=== PATIENT | male | born 1965 | race Caucasian/White ===

== ENCOUNTER 2021-05-23 02:58 | Observation (INO) | payer OTHER ==
[~2021-05-23] VITALS: Ht 172.7 cm; Wt 78.0 kg
[2021-05-23 03:02] VITALS: BP 188/104
[2021-05-23] MEDS ORDERED: TRAMADOL 50 MG50 MG PO (03:04)
[2021-05-23] MEDS ORDERED: AMBIEN 10 MG TA10 MG PO (03:04)
[2021-05-23 03:21] LABS: ABSOLUTE BASOPHILS 0.1 thou/uL (0.0-0.2); ABSOLUTE EOSINOPHILS 0.2 thou/uL (0.0-0.7); ABSOLUTE LYMPHOCYTES 3.4 thou/uL (0.8-5.3); ABSOLUTE MONOCYTES 0.5 thou/uL (0.0-1.2); BASOPHILS 0.7 %; EOSINOPHILS 1.9 %; HEMATOCRIT 46.1 % (42.0-52.0); HEMOGLOBIN 15.6 gm/dL (14.0-18.0); MCH 30.4 pg (26.0-34.0); MCHC 33.8 g/dL (28.0-37.0); MCV 89.9 fL (80.0-100.0); MONOCYTES 5.6 %; MPV 7.7 fl. (7.2-11.1); NUCLEATED RBCS 0 /100WBC; PLATELET COUNT* 285 thou/uL (150-400); POLYS 49.8 %; RBC 5.13 mil/uL (4.50-6.00); RDW-CV 13.5 % (10.5-14.5)
[2021-05-23 03:44] LABS: CALCIUM 8.9 mg/dL (8.5-10.1); CREATININE 1.2 mg/dL (0.6-1.3); POTASSIUM 3.7 mmol/L (3.5-5.1)
[2021-05-23 03:54] LABS: ALBUMIN 4.1 g/dL (3.4-5.0); MAGNESIUM 2.1 mg/dL (1.8-2.4); TOTAL BILIRUBIN 0.8 mg/dL (<0.1-1.0); TOTAL PROTEIN 7.3 g/dL (6.4-8.2)
[2021-05-23 09:55] LABS: CHOLESTEROL 180 mg/dL (<200); HDL CHOLESTEROL 80 mg/dL (>40); LDL CHOLESTEROL 76 mg/dL (<100); TC:HDL 2.3 Ratio (Not establshd); TRIGLYCERIDE 120 mg/dL (<150); VLDL 24 mg/dL (<40)
[2021-05-23 09:57] VITALS: BP 113/82
[2021-05-23 09:57] LABS: SERUM ASSESSMENT Clear
[2021-05-23 10:15] VITALS: BP 127/91
[2021-05-23 12:00] VITALS: BP 122/87
--- NOTE | 2021-05-23 13:55 | 2DMMODE ---
[place] [address] 2 D/M-MODE ECHOCARDIOGRAM Name: JAC MCCALLUM Room: [address] Derrick#: [id number] Admission: 05/23/21 Attend Phys: Santos Bhatia Discharge: Date of : 63 Date of Service: 05/23/21 1355 Report #: [id number] THIS REPORT FOR: cc: FAM - Family physician unknown FAM - Family physician unknown Rey Martinez MD [facility] ~ APPROVED REPORT Study performed: 05/23/2021 10:45:09 EXAM: Comprehensive 2D, Doppler, and color-flow Echocardiogram Patient Location: In-Patient Room #: [facility] Status: routine BSA: 1.91 HR: 74 bpm BP: 113/82 mmHg Rhythm: NSR Other Information Study Quality: Good Indications Chest Pain 2D Dimensions IVSd: 10.31 (7-11mm) LVOT Diam: 21.50 (18-24mm) LVDd: 38.02 mm PWd: 9.62 (7-11mm) Ascending Ao: 31.31 (22-36mm) LVDs: 23.59 (25-40mm) Aortic Root: 34.48 mm Volumes Left Atrial Volume (Systole) LA ESV Index: 19.20 mL/m2 Aortic Valve AoV Peak Kan.: 1.19 m/s AO Peak Gr.: 5.62 mmHg LVOT Max P.42 mmHg AO Mean Gr.: 2.72 mmHg LVOT Mean P.14 mmHg LVOT Max V: 1.16 m/s AO V2 VTI: 19.61 cm LVOT Mean V: 0.65 m/s KALEY (VTI): 3.86 cm2 LVOT V1 VTI: 20.85 [place] [address] 2 D/M-MODE ECHOCARDIOGRAM Name: JAC MCCALLUM Room: [address]RPrasanth#: [id number] Admission: 05/23/21 Attend Phys: Santos Bhatia Discharge: Date of : 63 Date of Service: 05/23/21 1355 Report #: [id number] Mitral Valve E/A Ratio: 1.19 MV Decel. Time: 192.69 ms MV E Max Kan.: 0.49 m/s MV PHT: 55.88 ms MVA (PHT): 3.94 cm2 TDI E/Lateral E': 4.45 E/Medial E': 4.90 Medial E' Kan.: 0.10 m/s Lateral E' Kan.: 0.11 m/s Pulmonary Valve PV Peak Kan.: 0.89 m/s PV Peak Gr.: 3.16 mmHg Tricuspid Valve RAP Estimate: 5.00 mmHg TR Peak Gr.: 21.80 mmHg RVSP: 26.00 mmHg PA Pressure: 26.00 mmHg Left Ventricle The left ventricle is normal size. There is normal LV segmental wall motion. There is normal left ventricular wall thickness. Left ventricular systolic function is normal. The left ventricular ejection fraction is within the normal range. LVEF is 55-60%. The left ventricular diastolic function is normal. Right Ventricle The right ventricle is normal size. The right ventricular systolic function is normal. Atria The left atrium size is normal. The right atrium size is normal. Aortic Valve The aortic valve is normal in structure. No aortic regurgitation is present. There is no aortic valvular stenosis. Mitral Valve The mitral valve is normal in structure. Trace mitral regurgitation. No evidence of mitral valve stenosis. Tricuspid Valve The tricuspid valve is normal in structure. Trace tricuspid regurgitation. [place] [address] 2 D/M-MODE ECHOCARDIOGRAM Name: JAC MCCALLUM Room: [address]#: [id number] Admission: 05/23/21 Attend Phys: Santos Bhatia Discharge: Date of : 63 Date of Service: 05/23/21 1355 Report #: [id number] Pulmonic Valve The pulmonary valve is normal in structure. Trace pulmonic regurgitation. Great Vessels The aortic root is normal in size. IVC is normal in size and collapses >50% with inspiration. Pericardium There is no pericardial effusion. <Conclusion> The left ventricle is normal size. There is normal left ventricular wall thickness. Left ventricular systolic function is normal. The left ventricular ejection fraction is within the normal range. LVEF is 55-60%. The left ventricular diastolic function is normal. The right ventricle is normal size. The left atrium size is normal. The aortic valve is normal in structure. The mitral valve is normal in structure. Trace mitral regurgitation. The tricuspid valve is normal in structure. Trace tricuspid regurgitation. No pulmonary hypertension. IVC is normal in size and collapses >50% with inspiration. There is no pericardial effusion. There is normal LV segmental wall motion. <ELECTRONICALLY SIGNED> By: Rey Martinez MD, FACC 05/23/21 1355 1355 1355 Rey Martinez MD, FACC /INF
--- NOTE | 2021-05-23 14:20 | EKG ---
[place] [address] ELECTROCARDIOGRAM REPORT Name: JAC MCCALLUM Room: [address]#: [id number] Admission: 05/23/21 Attend Phys: Santos Bhatia Discharge: Date of : 63 Date of Service: 05/23/21 0305 Report #: [id number] THIS REPORT FOR: //name// [facility] ED Test Date: 2021-05-23 Test Time: 03:05:10 Pat Name: JAC MCCALLUM Department: Room: [facility] Gender: M Canvas Baster: : 1965 Requested By: Vanita Simon Order Number: [id number] MD: Rey Martinez Measurements Intervals [place] Rate: 71 P: 61 VA: 195 QRS: 93 QRSD: 99 T: 59 QT: 401 QTc: 436 Interpretive Statements Sinus rhythm Borderline right axis deviation No previous ECG available for comparison Electronically Signed On 05-23-2021 14:19:58 [employer] DEVEL[employer] by Rey Martinez [email or web address] <ELECTRONICALLY SIGNED> By: Rey Martinez MD, [facility] 05/23/21 1419 0305 4 Rey Martinez MD, FAC /EPI
[2021-05-23] MEDS ORDERED: PROAIR HFA8.5 GM INH (14:29)
[2021-05-23 14:52] VITALS: BP 122/87
== END 2021-05-23 15:00 | disposition home or self-care (01) ==
LOC: M.ERS 02:58 → M.TBA-ER 06:02 → M.ORTHSURG 06:02
PROVIDERS: Emergency Medicine; Registered Nurse; ADMIT Internal Medicine; ATTEND Internal Medicine
DX: R07.89 Other chest pain (principal); Z20.822 Contact with and (suspected) exposure to COVID-19; R06.00 Dyspnea, unspecified; N40.0 Benign prostatic hyperplasia without lower urinary tract symptoms; J98.6 Disorders of diaphragm; R79.89 Other specified abnormal findings of blood chemistry; Z82.49 Family history of ischemic heart disease and other diseases of the circulatory system; Z79.899 Other long term (current) drug therapy